=== PATIENT | male | born 1990 | race African-American/Black ===

== ENCOUNTER 2017-03-16 10:17 | Emergency (ER) | payer BC ==
[~2017-03-16] VITALS: Ht 185.4 cm; Wt 99.8 kg
[2017-03-16 10:17] VITALS: BP 123/83
== END 2017-03-16 11:08 | disposition home or self-care (01) ==
LOC: ER 10:17
DX: J06.9 Acute upper respiratory infection, unspecified (principal); F10.99 Alcohol use, unspecified with unspecified alcohol-induced disorder; F15.10 Other stimulant abuse, uncomplicated

== ENCOUNTER 2017-04-24 21:02 | Emergency (ER) | payer BC ==
[~2017-04-24] VITALS: Ht 185.4 cm; Wt 99.8 kg
[2017-04-24 21:31] VITALS: BP 145/82
[2017-04-24] MEDS ORDERED: IBUPROFEN 800800 M1 PO (21:36)
[2017-04-24] MEDS ORDERED: AMOXICILLIN 50500 MG PO (21:36)
== END 2017-04-24 21:40 | disposition home or self-care (01) ==
LOC: ER 21:02
DX: J02.9 Acute pharyngitis, unspecified (principal); H66.92 Otitis media, unspecified, left ear; F10.99 Alcohol use, unspecified with unspecified alcohol-induced disorder